=== PATIENT | male | born 1960 | race African-American/Black ===

== ENCOUNTER 2019-05-05 22:49 | Emergency (ER) | payer BC, MEDICAID ==
[~2019-05-05] VITALS: Ht 170.2 cm; Wt 77.0 kg
[2019-05-06] MEDS ORDERED: SODIUM CHLORIDE 0.9% 1,000 ML IV ONE ×2 (00:54→03:11)
[2019-05-06 01:48] LABS: BASOPHILS % 0.3 % (0.0-2.0); EOSINOPHILS % 0.3 % (0.0-5.0); HEMOGLOBIN. 16.6 g/dL (14.0-18.0); LYMPHOCYTES % 10.9 % (20.0-50.0); MEAN CORPUSCULAR VOLUME 86.1 fL (80.0-94.0); MONOCYTES % 5.9 % (2.0-8.0); NEUTROPHILS % 82.6 % (40.0-76.0); PLATELET 148 x1000/uL (130-400); RED BLOOD CELL COUNT 6.15 mill/uL (4.7-6.1)
[2019-05-06 01:55] LABS: CHLORIDE 103 mEq/L (98-107)
[2019-05-06] MEDS: DEXT 5%/0.45% NACL 1000ML 1,000 ML IV SCH ×2 (04:58→09:24)
[2019-05-06] MEDS ORDERED: ACETAMINOPHEN 325MG TABLET PO PRN ×2 (05:00→19:00)
[2019-05-06] MEDS ORDERED: MAGNESIUM/ALUMINUM HYDROXIDE/SIMETHICONE 30ML UDC PO PRN ×2 (05:00→19:00)
[2019-05-06] MEDS ORDERED: ONDANSETRON HCL 4MG/2ML INJ IV PRN ×2 (05:00→19:00)
[2019-05-06] MEDS ORDERED: CLONIDINE 0.1MG TABLET PO PRN ×2 (05:00→19:00)
[2019-05-06] MEDS ORDERED: DIPHENHYDRAMINE 50MG/ML VIAL IV PRN ×2 (05:00→19:00)
[2019-05-06 15:01] VITALS: BP 115/68
[2019-05-06] MEDS ORDERED: GUAIFENESIN 200MG/10ML SUGAR FREE UDC PO PRN (19:00)
[2019-05-06] MEDS ORDERED: ASPIRIN 325MG EC TABLET PO NR (19:00)
[2019-05-06] MEDS ORDERED: ZOLPIDEM TARTRATE 5MG TABLET PO PRN (19:15)
[2019-05-06] MEDS ORDERED: ATORVASTATIN CALCIUM 40MG TABLET PO SCH (21:00)
[2019-05-06] MEDS ORDERED: SODIUM CHLORIDE 0.9% 1,000 ML IV SCH (21:00)
[2019-05-06] MEDS ORDERED: FAMOTIDINE 20MG TABLET PO SCH (21:00)
== END 2019-05-06 15:17 | disposition left against medical advice (07) ==
LOC: ER 22:49 → EDBEDREQ 05-06 09:45 → ER 05-06 15:17 → CANBEDREQ 05-06 15:32
DX: R42 Dizziness and giddiness (principal); R55 Syncope and collapse; N17.9 Acute kidney failure, unspecified; I10 Essential (primary) hypertension; E78.00 Pure hypercholesterolemia, unspecified; E03.9 Hypothyroidism, unspecified; Z86.73 Personal history of transient ischemic attack (TIA), and cerebral infarction without residual deficits
CPT/HCPCS: 36415; 70450; 71045; 80053; 84484; 85025; 93005; 96360; 96361; 99284; J7030